=== PATIENT | female | born 1965 | race Caucasian/White ===

== ENCOUNTER 2024-03-06 20:56 | Emergency (ER) | payer BC, SELFPAY ==
--- NOTE | 2024-03-06 21:03 | XRR_ITS ---
PROCEDURE INFORMATION: Exam: XR Chest Exam date and time: 03/06/2024 9:40 PM Age: 58 years old Clinical indication: Other: Syncope TECHNIQUE: Imaging protocol: Radiologic exam of the chest. Views: 1 view. COMPARISON: No relevant prior studies available. FINDINGS: Lungs: Unremarkable. No consolidation. Pleural spaces: Unremarkable. No pleural effusion. No pneumothorax. Heart/Mediastinum: Unremarkable. No cardiomegaly. Bones/joints: Unremarkable. XR/XR chest 1V portable [id number] IMPRESSION: No acute findings.
--- NOTE | 2024-03-06 21:04 | ED_ITS ---
HPI - General Adult 2 General: Chief complaint: Alcohol Stated complaint: N/V Time Seen by Provider: 03/06/24 21:03 History of Present Illness: Patient presents to the ER by EMS with complaints of syncope while having a couple drinks of wine. EMS stated that she got very diaphoretic and was altered but after they gave her some fluids Zofran she started to perk right back up patient says she still does not feel good cannot elicit any other responses other than her legs are weak. Review of Systems 2 General: Reports: 10 or more systems reviewed and unremarkable except in HPI and below Physical Exam 2 Const: COMMON NORMALS: no acute distress, average body habitus, patient oriented x3, no limitations, healthy appearing, alert and well nourished HENMT: COMMON NORMALS: normocephalic, atraumatic, hearing grossly normal bilaterally, external ears normal, Normal external nose present and moist oral mucous membranes HEAD & SCALP: normocephalic and atraumatic NOSE: Normal external nose present EXTERNAL EAR: Yes external ears normal Eye: COMMON NORMALS: Equal, round and reactive pupils present, EOMs intact bilaterally, conjunctivae normal and no scleral icterus CONJUNCTIVA: Yes conjunctivae normal PUPIL: Yes Equal, round and reactive pupils present Neck/C-Spine: COMMON NORMALS: full ROM, no lymphadenopathy, supple, no meningeal signs, no JVD and Thyroid normal THYROID: Thyroid normal Chest: COMMONS NORMALS: normal inspection of the chest and normal palpation of entire chest wall Resp: COMMON NORMALS: normal respiratory effort, No retractions, No use of accessory muscles and clear to auscultation bilaterally AUSCULTATION: clear to auscultation bilaterally Cardio: COMMON NORMALS: no JVD, regular rate, regular rhythm, S1 normal heart sound present, S2 normal heart sound present, No gallops present (Cardio), No clicks present (Cardio), No murmurs present (Cardio) and No rub (Cardio) R ATE: regular rate RHYTHM: regular rhythm HEART SOUNDS: S1 normal heart sound present and S2 normal heart sound present GI: COMMON NORMALS: Normal to inspection, nondistended, normoactive bowel sounds present, Soft to palpation, non-tender, No hepatosplenomegaly present and no masses PALPATION: Yes Soft to palpation and Yes No hepatosplenomegaly present Neuro: COMMON NORMALS: patient oriented x3 SENSORIUM/ORIENTATION: Yes alert MENINGEAL SIGNS: Yes no meningeal signs Course 2 Vital Signs: Vital signs: Vital Signs Pulse Rate 81 03/06/24 22:11 Respiratory Rate 16 03/06/24 22:11 Blood Pressure 109/70 03/06/24 22:11 Pulse Oximetry 98 03/06/24 22:11 Oxygen Delivery Me thod Room Air 03/06/24 22:11 MDM - General Adult Medical Decision Making Lab work was reviewed with patient and family. Patient is feeling much better family is asking when she can go home. Patient be discharged home. Medical Records I reviewed the patient's medical records. Lab Data I reviewed the patient's lab results. 03/06/24 21:24 03/06/24 21:24 Laboratory Results WBC 7.01 10^3/uL (3.29-11.43) 03/06/24 21: RBC 4.28 10^6/uL (3.85-5.65) 03/06/24 21:24 Hgb 12.60 g/dL (11.27-16.99) 03/06/24 21: Hct 38.8 % (36-47) 03/06/24 21: MCV 90.7 fl (85-98) 03/06/24 21: MCH 29.4 pg (27-33) 03/06/24 21: MCHC 32.5 g/dL (30-55) 03/06/24 21:24 RDW 13.3 % (12.1-15.1) 03/06/24 21:24 Plt Count 247 10^3/cmm (157-399) 03/06/24 21:24 MPV 9.2 fL (7.4-10.4) 03/06/24 21:24 Neut % (Auto) 54.0 % 03/06/24 21:24 Lymph % (Auto) 34.8 % 03/06/24 21:24 [place] % (Auto) 9.4 % 03/06/24 21: Eos % (Auto) 1.0 % 03/06/24 21: Baso % (Auto) 0.4 % 03/06/24 21:24 Neut # (Auto) 3.78 10^3/uL (1.8-7.7) 03/06/24 21: Lymph # (Auto) 2.4 10^3/uL (0.8-4.8) 03/06/24 21:24 [place] # (Auto) 0.7 10^3/uL (0.2-0.9) 03/06/24 21:24 Eos # (Auto) 0.1 10^3/uL (0.0-0.8) 03/06/24 21:24 Baso # (Auto) 0.0 10^3/uL (0.0-0.1) 03/06/24 21:24 Nucleated RBC % (auto) 0 % 03/06/24 21:24 Nucleated RBCs # 0.0 /100WBC 03/06/24 21:24 Sodium 139 mmol/L (136-145) 03/06/24 21:24 Potassium 3.8 mmol/L (3.5-5.1) 03/06/24 21:24 Chloride 102 mmol/L (98-107) 03/06/24 21:24 Carbon Dioxide 27 mmol/L (22-29) 03/06/24 21:24 Anion Gap 13.8 (5-19) 03/06/24 21:24 BUN 13 mg/dL (6-20) 03/06/24 21:24 Creatinine 0.6 mg/dL (0.5-0.9) 03/06/24 21:24 GFR Calculation 103.0 mL/min (90-130) 03/06/24 21:24 Glucose 115 mg/dL (65-115) 03/06/24 21:24 Calculated Osmolality 289 mOsm/kg (285-295) 03/06/24 21:24 Calcium 8.9 mg/dL (8.5-10.5) 03/06/24 21:24 Magnesium 2.3 mg/dL (1.7-2.3) 03/06/24 21:24 Total Bilirubin 0.2 mg/dL (0.15-1.2) 03/06/24 21:24 AST 16 U/L (0-32) 03/06/24 21:24 ALT 17 U/L (0-33) 03/06/24 21:24 Alkaline Phosphatase 79 U/L (35-105) 03/06/24 21:24 Troponin T Baseline < 6 ng/L (0-10) 03/06/24 21:24 Total Protein 7.0 g/dL (6.6-8.7) 03/06/24 21:24 Albumin 4.3 g/dL (3.5-5.2) 03/06/24 21:24 Globulin 2.7 g/dL (1.3-4.6) 03/06/24 21:24 Ethyl Alcohol 116 mg/dL (0-10) H 03/06/24 21:24 All radiology interpretation(s) finalized by discharge Discharge Plan Discharge Patient Disposition: Home Clinical Impression: Alcoholic intoxication Qualifiers: Complication of substance-induced condition: uncomplicated Qualified Code(s): F 10.920 - Alcohol use, unspecified with intoxication, uncomplicated Nausea & vomiting Qualifiers: Vomiting type: unspecified Qualified Code(s): R11.2 - Nausea with vomiting, unspecified Condition: Stable Discharge Orders: Discharge ED (Routine); Ordered 03/06/24 Ordered By: Kenny Gonzalez Referrals: [facility] [Other] Patient Instructions: Acute Nausea and Vomiting (ED), Alcohol Intoxication Activity Restrictions/Additional Instructions: Thank you for choosing [facility] for your healthcare needs today. Please realize that you were seen in the emergency department and that we are providing you with an emergency medical screening exam and this may not be a complete and all exclusive of all testing and/or medical workup we may need to determine your element or severity of your illness. It is very important that you follow-up as instructed with your primary care provider or specialist for the additional evaluation and to discuss your medical treatment plan. You may return to the emergency department should you have concerns or if your condition changes or worsens in any way. Coding Level of Care Code ED Power Dig[employer] Operator for Sonja Dumont
[2024-03-06 21:06] VITALS: BMI 28.0
[2024-03-06 21:30] LABS: Basophils % 0.4 %; Eosinophils # 0.1 10^3/uL (0.0-0.8); Hematocrit 38.8 % (36-47); Lymphocytes # 2.4 10^3/uL (0.8-4.8); Lymphocytes % 34.8 %; Mean Corpuscular HGB Conc 32.5 g/dL (30-55); Mean Corpuscular Hemoglobin 29.4 pg (27-33); Mean Corpuscular Volume 90.7 fl (85-98); Mean Platelet Volume 9.2 fL (7.4-10.4); Monocytes # 0.7 10^3/uL (0.2-0.9); Monocytes % 9.4 %; Neutrophils # 3.78 10^3/uL (1.8-7.7); Nucleated Red Blood Cells % 0 %; Platelet Count 247 10^3/cmm (157-399); Red Blood Count 4.28 10^6/uL (3.85-5.65); Red Cell Distribution Width 13.3 % (12.1-15.1); White Blood Count 7.01 10^3/uL (3.29-11.43)
[2024-03-06 22:05] LABS: Troponin(5th) Baseline < 6 ng/L (0-10)
[2024-03-06 22:07] LABS: Alanine Aminotransferase 17 U/L (0-33); Albumin Level 4.3 g/dL (3.5-5.2); Alcohol Level 116 mg/dL (0-10); Alkaline Phosphatase 79 U/L (35-105); Anion Gap 13.8 (5-19); Aspartate Amino Transferase 16 U/L (0-32); Blood Urea Nitrogen 13 mg/dL (6-20); Calcium 8.9 mg/dL (8.5-10.5); Carbon Dioxide 27 mmol/L (22-29); Chloride 102 mmol/L (98-107); Creatinine Clr Calc Pharmacy 121.1651; Globulin 2.7 g/dL (1.3-4.6); Glucose 115 mg/dL (65-115); Magnesium 2.3 mg/dL (1.7-2.3); Osmolality Calculated 289 mOsm/kg (285-295); Potassium 3.8 mmol/L (3.5-5.1); Sodium 139 mmol/L (136-145); Total Bilirubin 0.2 mg/dL (0.15-1.2)
[2024-03-06 22:11] VITALS: BP 109/70; PULSE 81; RESP 16; O2SAT 98
[2024-03-06 22:49] VITALS: BP 108/70; PULSE 78; RESP 19; O2SAT 98
== END 2024-03-06 22:54 | disposition home or self-care (01) ==
PROVIDERS: Emergency Provider Emergency Medicine
DX: F10.129 Alcohol abuse with intoxication, unspecified (principal); Y90.5 Blood alcohol level of 100-119 mg/100 ml; R11.2 Nausea with vomiting, unspecified
CPT/HCPCS: 71045; 80053; 80307; 83735; 84484; 85025; 99285